=== PATIENT | male | born 1960 | race Two or more races ===

== ENCOUNTER 2019-08-30 19:02 | Emergency (ER) | payer OTHER ==
[~2019-08-30] VITALS: Ht 162.6 cm; Wt 79.1 kg
[2019-08-30 19:20] VITALS: BP 166/90
--- NOTE | 2019-08-30 19:29 | PHYS DOC ---
Past Medical History Past Medical History: Diabetes-Type II General Adult EDM: Chief Complaint: Congestion HPI: HPI: 59-year-old male with significant history of allergic rhinitis, diet-controlled diabetes, who presents for evaluation of a 6-day history of URI symptoms. He reports nonproductive cough, nasal congestion and rhinorrhea. No chest pain or dyspnea. No known contact with COVID19 infected individuals. No fevers. He also reports bilateral lower abdominal discomfort, acute on chronic, dull and nonradiating, after jumping down 3 steps at home. No head injury or LOC. No anticoagulant use. Review of Systems: Review of Systems: Gen: No fever, chills. Eyes: No blurred vision, diplopia. ENT: Reports nasal congestion, sore throat. CV: No CP, palpitations. Resp. No SOB. Reports cough. GI: No abd pain, N/V. : No dysuria, bowel or bladder dysfunction. Neuro: No LOPEZ, dizziness, weakness. MSK: No myalgia, arthralgia. Reports back pain. Skin: No acute rash or lesion. Heart Score: Risk Factors: Risk Factors: DM, Current or recent (<one month) smoker, HTN, HLP, family history of CAD, obesity. Risk Scores: Score 0 - 3: 2.5% MACE over next 6 weeks - Discharge Home Score 4 - 6: 20.3% MACE over next 6 weeks - Admit for Clinical Observation Score 7 - 10: 72.7% MACE over next 6 weeks - Early Invasive Strategies Physical Exam: PE: Gen: NAD. Well nourished. Head: NC/AT. Eyes: No scleral icterus. No conjunctival injection. PERRL. Lower eyelid cobblestoning. ENT: MMM. Posterior OP clear. Uvula midline. No tonsillar hypertrophy or asymmetry. Neck: Supple. NT. No JVD. No meningismus. CV: RRR. Peripheral pulses intact. Resp: CTAB. Abd: Soft. NT. ND. MSK: No peripheral cyanosis. No edema. Neuro: A&Ox3. Strength & sensation grossly intact throughout. Skin. Warm. Dry. Psych: Appropriate mood & affect. EKG: EKG: [] Radiology/Procedures: Radiology/Procedures: CHEST PA LATERAL History: Cough Comparison: None. Findings: No consolidation or pleural effusion. Normal heart size. No pneumothorax. Impression: 1. No acute cardiopulmonary process. Electronically signed by: Leighton Daniel DO (08/30/2019 8:02 PM) [facility] LUMBAR SPINE 2-3V History: Pain Technique: 3 views lumbar spine. Comparison: None. Findings: Additional lumbosacral anatomy with lumbarization of S1. Minimal grade 1 anterolisthesis L5 on S1. Otherwise, normal alignment. Normal vertebral body height. No fracture. Mild to moderate multilevel degenerative disc changes most prominent L4-L5 and L5-S1. Moderate lower lumbar facet arthropathy. Impression: 1. No acute osseous abnormality. 2. Multilevel lumbar spondylosis. 3. Grade 1 anterolisthesis L5 on S1. Electronically signed by: Leighton Daniel DO (08/30/2019 8:04 PM) [facility] Course & Med Decision Making: Course & Med Decision Making Pertinent Labs and Imaging studies reviewed. (See chart for details) In summary, 59-year-old male who presents with URI symptoms, with findings suggesting at least some component of allergic rhinitis. Chest x-ray clear. Also reports acute on chronic low back pain with no clinical signs or symptoms of acute vasculopathy or myelopathy. Plain films show mild anterolisthesis, L5 on S1. He remains well-appearing and nontoxic. He is ambulating without antalgia. We discharged home with prescriptions for Zyrtec, flonase, lidocaine patch. Outpatient FU. Advised continued self quarantine given the current pandemic. Return precautions given. Angie Disclaimer: Angie Disclaimer: This electronic medical record was generated, in whole or in part, using a voice recognition dictation system. Departure Departure Impression: Primary Impression: URI (upper respiratory infection) Additional Impressions: Allergic rhinitis Low back pain Disposition: HOME, SELF-CARE Condition: STABLE Referrals: NO PCP (PCP) Patient Instructions: Allergic Rhinitis Scripts Lidocaine (Lidocaine) 1 Each Adh..patch 1 EACH TP Q12HR, #10 PATCH Prov: LEOSWALD H DO 08/30/19 Cetirizine Hcl/Pseudoephedrine (ZYRTEC-D TABLET) 1 Each Tab.er.12h 1 TAB PO DAILY, #30 TAB Prov: LE,OSWALD H DO 08/30/19 Fluticasone Propionate (Flonase Allergy Relief) 9.9 Ml [place].susp 2 SPRAYS NS DAILY, #1 BOTTLE Prov: LE,OSWALD H DO 08/30/19 OSWALD LUCAS DO August 30, 2019 19:29
--- NOTE | 2019-08-30 20:05 | RAD ---
CHEST PA LATERAL History: Cough Comparison: None. Findings: No consolidation or pleural effusion. Normal heart size. No pneumothorax. Impression: 1. No acute cardiopulmonary process. Electronically signed by: Leighton Daniel DO (08/30/2019 8:02 PM) [facility]
--- NOTE | 2019-08-30 20:07 | RAD ---
LUMBAR SPINE 2-3V History: Pain Technique: 3 views lumbar spine. Comparison: None. Findings: Additional lumbosacral anatomy with lumbarization of S1. Minimal grade 1 anterolisthesis L5 on S1. Otherwise, normal alignment. Normal vertebral body height. No fracture. Mild to moderate multilevel degenerative disc changes most prominent L4-L5 and L5-S1. Moderate lower lumbar facet arthropathy. Impression: 1. No acute osseous abnormality. 2. Multilevel lumbar spondylosis. 3. Grade 1 anterolisthesis L5 on S1. Electronically signed by: Leighton Daniel DO (08/30/2019 8:04 PM) [facility]
[2019-08-30] MEDS ORDERED: LIDO1ADH63 TP (20:23)
[2019-08-30] MEDS ORDERED: FLUT9.9S NS (20:23)
[2019-08-30] MEDS ORDERED: CETI1TAB7 PO (20:23)
== END 2019-08-30 20:30 | disposition home or self-care (01) ==
LOC: ER 19:02
DX: J06.9 Acute upper respiratory infection, unspecified (principal); M54.5 Low back pain; J30.9 Allergic rhinitis, unspecified; R09.81 Nasal congestion; E11.9 Type 2 diabetes mellitus without complications
CPT/HCPCS: 71046; 72100; 99284